=== PATIENT | female | born 1930 | race Caucasian/White ===

== ENCOUNTER 2016-11-18 11:21 | Emergency (ER) | payer MEDICARE, BC ==
--- NOTE | ~2016-11-18 | CR142 ---
[facility] A Service of [facility] RADIOLOGY TEXT RESULTS PATIENT: CHAU MCKEON LOCATION: [facility] : 34 UNIT #: [id number] AGE: [address]: Leonid Grace SEX: F ORDER DR: [id number] [facility] [address] [place], [place] [address] [id number] MR#: [id number] Acc #: [id number] NAME: CHAU MCKEON. : 1930 SEX: F STUDY DATE/TIME: 11/18/2016 12:07 UNIT: [facility] ROOM: STUDY DESCRIPTION: CR Hand Min 3 Views Rt Ordering Physician: Leonid Grace Primary Care Physician: Becky Zurita M.D. MEDICAL IMAGING REPORT This report is preliminary unless electronic signature is present EXAM Right hand, 11/18/2016. HISTORY 86-year-old female with right hand pain status post fall 2 days ago. COMPARISON Right wrist same date. FINDINGS 4 views of the right hand demonstrate diffuse bony demineralization. No evidence of a displaced fracture or dislocation. There are advanced degenerative changes noted throughout the interphalangeal joints, as well as the first CMC joint and second and third metacarpophalangeal joints. Chondrocalcinosis. Degenerative change of the distal radioulnar joint. Widening of the scapholunate interval with slight proximal migration of the capitate, suggesting scapholunate advanced collapse (SLAC wrist) IMPRESSION 1. Osteopenia. No evidence of a displaced fracture or dislocation. 2. Advanced degenerative changes throughout the hand and wrist, detailed above. Dictated by... Jack Linares M.D. THIS IS AN ELECTRONICALLY VERIFIED REPORT Jack Linares M.D. at 11/19/2016 8:57 AM ELIE/ole TD: 11/18/2016 13:19 [facility] A Service [facility] RADIOLOGY TEXT RESULTS PATIENT: CHAU MCKEON [id number] : 32 UNIT #: [id number] AGE: [address]: Leonid Grace SEX: F ORDER DR: JOB #: [id number] MEDICAL IMAGING REPORT Page 1 of 1 COPY
--- NOTE | ~2016-11-18 | CR282 ---
[facility] A Service of [facility] RADIOLOGY TEXT RESULTS PATIENT: CHAU MCKEON LOCATION: [facility] : 34 UNIT #: [id number] AGE: [address]: Leonid Grace SEX: F ORDER DR: [id number] [facility] [address] [place], [place] [address] [id number] P MR#: [id number] Acc #: [id number] NAME: CHAU MCKEON. : 1930 SEX: F STUDY DATE/TIME: 11/18/2016 12:08 UNIT: [facility] ROOM: STUDY DESCRIPTION: CR Wrist Min 3 View Rt Ordering Physician: Leonid Grace Primary Care Physician: Becky Zurita M.D. MEDICAL IMAGING REPORT This report is preliminary unless electronic signature is present EXAM Right wrist, 11/18/2016. HISTORY 86-year-old female with right wrist pain status post fall 2 days ago. COMPARISON Right hand same date. FINDINGS 3 views of the right wrist demonstrate diffuse bony demineralization. No evidence of a displaced fracture or dislocation. Advanced degenerative change of the first carpometacarpal joint. Mild arthrosis of the distal radioulnar joint. Chondrocalcinosis in the TFCC. Widening of the scapholunate interval with mild proximal capitate migration. 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 IMPRESSION 1. Osteopenia. No evidence of a displaced fracture or dislocation. 2. Advanced degenerative changes throughout the wrist, detailed above. Dictated by... Jack Linares M.D. THIS IS AN ELECTRONICALLY VERIFIED REPORT Jack Linares M.D. at 11/19/2016 8:57 AM ELIE/ole TD: 11/18/2016 13:20 JOB #: [id number] [facility] A Service of [facility] RADIOLOGY TEXT RESULTS PATIENT: CHAU MCKEON LOCATION: [facility] : 34 UNIT #: [id number] AGE: [address]: Leonid Grace SEX: F ORDER DR: MEDICAL IMAGING REPORT Page 1 of 1 COPY
--- NOTE | ~2016-11-18 | CT71 ---
[facility] A Service [facility] RADIOLOGY TEXT RESULTS PATIENT: CHAU MCKEON LOCATION: [facility] : 34 UNIT #: [id number] AGE: [address]: Leonid Grace SEX: F ORDER DR: [id number] [facility] [address] [place], [place] [address] [id number] MR#: [id number] Acc #: [id number] NAME: CHAU MCKEON. : 1930 SEX: F STUDY DATE/TIME: 11/18/2016 14:22 UNIT: [facility] ROOM: STUDY DESCRIPTION: CT Head Wo Contrast Attending Physician: Leonid Grace Ordering Physician: Leonid Grace Primary Care Physician: Becky Zurita M.D. MEDICAL IMAGING REPORT This report is preliminary unless electronic signature is present EXAM CT brain without contrast. HISTORY Fell and hit head 2 days ago. Bruising to face and right forehead. TECHNIQUE This CT exam was performed with one or more of the following radiation dose reduction techniques: automatic exposure control, adjustment of mA and/or kV according to patient size, and iterative reconstruction. FINDINGS CT brain without contrast demonstrates no intracranial hemorrhage, mass or edema. No midline shift or extraaxial fluid collection.. 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 Minimal chronic ischemic changes in the periventricular white matter bilaterally. IMPRESSION No acute findings. Dictated by... Ramin Chapman M.D. THIS IS AN ELECTRONICALLY VERIFIED REPORT Ramin Chapman M.D. at 11/18/2016 10:23 PM DFL/ole TD: 11/18/2016 14:56 JOB #: [id number] MEDICAL IMAGING REPORT [facility] A Service [facility] RADIOLOGY TEXT RESULTS PATIENT: CHAU MCKEON LOCATION: [facility] : 32 UNIT #: [id number] AGE: [address]: Leonid Grace SEX: F ORDER DR: Page 1 of 1 COPY
[~2016-11-18 11:21] MED LIST: ACTONEL PO; ALLERGY PILL; ALLERGY PILL PO; ASPIRINEC PO; CALCIUM 500 + D1 TAB PO; COMBIVENT INH14.7 GM INH; DULCOLAX; FEOSOL PO; FISH OIL 1,01 CAP.EC PO; FLEXERIL10 MG PO; FOSAMAX PO; FOSAMAX70 MG PO; IRON SUPPLEMENT1 TAB PO; LOW DOSE ASPIRI81 M2 PO; MIRALAX17 GM PO; MUCUS DM; MULTI-DAY1 TAB PO; MULTI-VIT/MIN P1 TAB PO; NEXIUM PO; NORCO 10-325 TA1 TAB PO; OMEPRAZOLE PO; OMEPRAZOLE40 M1 PO; OSTEO BIFLEX; PRILOSEC PO; SIMVASTATIN40 MG PO; SYMBICORT 160/4.6 G1; VICODIN ES 7.51 EAC1 PO; VIT E PO; VITAMIN C PO; VITAMIN D 2; VITAMIN D250000 UNIT PO; VYTORIN 10/20 T1 TAB PO; [UNRECOGNIZED DRUG - OTHER]
== END 2016-11-18 15:29 | disposition home or self-care (01) ==
LOC: CFTX 11:21 → CED 11:21 → CFTX 14:00
DX: S63.501A Unspecified sprain of right wrist, initial encounter (principal); S63.91XA Sprain of unspecified part of right wrist and hand, initial encounter; S00.83XA Contusion of other part of head, initial encounter; K21.9 Gastro-esophageal reflux disease without esophagitis; J45.909 Unspecified asthma, uncomplicated; M81.0 Age-related osteoporosis without current pathological fracture; W01.0XXA Fall on same level from slipping, tripping and stumbling without subsequent striking against object, initial encounter; Y92.009 Unspecified place in unspecified non-institutional (private) residence as the place of occurrence of the external cause
CPT/HCPCS: 29260; 70450; 73110; 73130; 99283; 99284